=== PATIENT | female | born 1990 | race Hispanic/Latino ===

== ENCOUNTER → 2019-12-07 | Day surgery (SDC) | payer OTHER ==
[2019-12-03 13:29] LABS: BASOPHILS # (AUTO) 0.1 (0.0-0.1); BASOPHILS % 0.8 % (0.0-1.0); EOSINOPHILS # (AUTO) 0.3 (0.0-0.4); EOSINOPHILS % 3.1 % (0.0-6.0); HEMATOCRIT 38.5 % (34.2-44.1); HEMOGLOBIN 12.8 g/dL (12.0-16.0); LYMPHOCYTES # (AUTO) 2.5 (1.0-3.2); LYMPHOCYTES % 28.9 % (18.0-39.1); MEAN CORPUSCULAR HEMOGLOBIN 30.6 pg (28-32); MEAN CORPUSCULAR HGB CONC 33.2 g/dL (31-35); MEAN CORPUSCULAR VOLUME 92.1 fL (81-99); MONOCYTES # (AUTO) 0.6 (0.2-0.8); MONOCYTES % 6.3 % (4.4-11.3); NEUTROPHILS # (AUTO) 5.3 (2.1-6.9); NEUTROPHILS % 60.6 % (38.7-80.0); PLATELET COUNT 285 x10e3/uL (140-360); RED BLOOD COUNT 4.18 x10e6/uL (3.6-5.1); RED CELL DISTRIBUTION WIDTH 13.2 % (11.7-14.4)
[~2019-12-07] MED LIST: ACETAMINOPHEN 1000 MG/100 ML 100 ML IV ONE; ACETAMINOPHEN/CODEINE 300MG - 30MG TAB ONE; BUPIVACAINE 0.25% 30ML SDV INJ ONE; CEFAZOLIN SOD 1 GM VIAL ONE; DEXAMETHASONE SOD PHOS INJ 4 MG/ML VIAL ONE; FENTANYL CITRATE/PF 100MCG/2 ML INJ ONE; GLYCOPYRROLATE INJ 0.2 MG/ML VIAL ONE; HYDROMORPHONE 1MG/1ML INJ ONE; HYDROMORPHONE 2MG/ML 2 MG/ML ML ONE; KETOROLAC TROMETHAMINE 30 MG/ML VIAL ONE; LIDOCAINE HCL 2% LOCAL INJ 5 ML SDV VIAL INJ ONE; MEPERIDINE HCL INJ 25 MG/ML VIAL ONE; MIDAZOLAM HCL 2 MG/2 ML VIAL ONE; NEOSTIGMINE 1 MG/ML 10ML VIAL ONE; ONDANSETRON HCL INJ 2MG/ML 2ML 2 MG/ML VIAL ONE; PROPOFOL IV EMULSION 10 MG/ML 20 ML VIAL ONE; ROCURONIUM BROMIDE 10 MG/ML 5ML VIAL IV ONE; SEVOFLURANE INHAL SOLN 250 ML PEN BTL ONE; ULTRAM 50MG50 MG PO
[2019-12-07 15:30] VITALS: BP 130/71
--- NOTE | 2019-12-07 18:00 | Operative Report ---
DATE OF PROCEDURE: SURGEON: Lindsay Collins MD PREOPERATIVE DIAGNOSIS: Bilateral dermoid cyst. POSTOPERATIVE DIAGNOSIS: Bilateral dermoid cyst. PROCEDURE: Laparoscopic single port bilateral ovarian cystectomy and excision of cyst and appendices of epiploicae. DESCRIPTION OF PROCEDURE: The patient was taken to the OR. General anesthesia was induced. She was prepped and draped in a normal sterile fashion, placed in dorsal lithotomy position. About 2.5 cm skin incision was made around vertically below the umbilicus. Rectus fascia using the Susanna technique rectus fascia was picked with Mansoor's and incision with scalpel was made in between the two Mansoor's and rectus fascia and the peritoneum were opened. The fascia was held with Vicryl zero stitch. Following this, the incision was extended vertically using the curved Tesfaye scissors. A single point medium size was placed inside the abdomen and the sleeve was rolled, cover was placed. The abdomen was inflated with carbon dioxide gas. Using the camera in the midline and two ports through the GelPOINT were used, one with a grasper and one with ligature. The following findings were noted. Normal-looking uterus, normal-looking tubes, about 10 cm ovarian mass on the right side and about 5 cm to 6 cm ovarian mass on the left side. No adhesions. No endometriosis. Using a grasper, the left ovary was held and LigaSure hook was used to demarcate the area and separate the ovary from the ovarian cyst. While doing that some of the ovarian cyst sebaceous material was spilled into the abdominal cavity. Ovarian cyst was removed safely using the ligature. The ovary was maintained on the left side was considered on the left side. Suction irrigation of the peritoneal cavity with warm saline was performed. Hemostasis was found to be adequate. Attention was made to the right ovary where the large ovarian cyst was noted to have a pedicle and accordingly it was gently pulled towards the GelPOINT and GelPOINT cap was removed. The cyst was quite big to be removed through the opening and accordingly an incision was made and accordingly a moist lap was placed underneath the right ovarian cyst and the ovarian cyst at that stage was inspected and it showed no ovarian tissue of significance . Following this, an incision was made with a scalpel into the ovarian cyst. After removing the GelPOINT cap and suction irrigation was placed inside the cyst and the sebaceous material was removed. At that stage two clamps were applied below the ovarian cyst keeping small ovarian tissue behind and the cyst was excised using Tesfaye scissors, sent to pathology. Following this, the ovarian tissue was approximated using Vicryl 2-0 stitches interrupted stitches. Hemostasis was found to be adequate. Uterus was released and the GelPOINT cap was applied and the abdomen was inflated with carbon dioxide gas. The patient was placed in Trendelenburg position. Good visualization of the pelvis was noted and did show good hemostasis. Suction irrigation was performed with 3 L of normal saline to remove any debris of sebaceous material or hairs from the dermoid cyst and a small epiploic cyst was noted at the rectum with small pedicle noted. This was removed uneventfully using the LigaSure and sent to pathology. After that the instruments removed from the abdomen. GelPOINT was removed and the rectus fascia approximated using the stay sutures that were placed earlier using Vicryl zero and the rest of to dissect the fascia approximated using Vicryl zero suture continuous suture. The skin was closed with Monocryl 4-0 subcu and Marcaine with epi was injected subcutaneously around the umbilicus. The patient tolerated the procedure well. Lap and instrument count were correct x2 at the end of the procedure. Lindsay Collins MD DD/ISIDRA /[id number]
== END | disposition home or self-care (01) ==
LOC: OR 07:30
PROVIDERS: ATTEND Obstetrics & Gynecology
DX: D27.1 Benign neoplasm of left ovary (principal); D27.0 Benign neoplasm of right ovary; K62.89 Other specified diseases of anus and rectum; N20.0 Calculus of kidney; Z01.812 Encounter for preprocedural laboratory examination; Z11.59 Encounter for screening for other viral diseases
CPT/HCPCS: 36415; 45499; 58662; 84702; 85025; 87635; 88305; C1758; J0131; J0690; J1100; J1170 ×2; J1885; J2001; J2175; J2250; J2405; J2704; J2710; J3010